=== PATIENT | male | born 1980 | race African-American/Black ===

== ENCOUNTER 2017-08-22 15:45 | Emergency (ER) | payer SELFPAY ==
[~2017-08-22] VITALS: Ht 165.1 cm; Wt 75.0 kg
[2017-08-22] MEDS ORDERED: FLEXERIL10 MG PO (17:04)
[2017-08-22] MEDS ORDERED: MEDROL DOSEPAK4 MG PO (17:04)
[2017-08-22] MEDS ORDERED: NAPROXEN500 MG PO (17:04)
[2017-08-22 17:52] VITALS: BP 135/100
== END 2017-08-22 17:53 | disposition home or self-care (01) ==
LOC: EME 15:45
DX: M54.41 Lumbago with sciatica, right side (principal)
CPT/HCPCS: 99281; 99284; J1885